=== PATIENT | female | born 1990 | race Caucasian/White ===

== ENCOUNTER 2016-07-26 21:26 | Emergency (ER) | payer SELFPAY ==
[2016-07-26 21:54] LABS: RBC URINE 2 /hpf (0-3); URINE BILIRUBIN NEGATIVE (NEGATIVE); URINE COLOR Yellow (YELLOW); URINE GLUCOSE (UA) NORMAL (Normal); URINE KETONE NEGATIVE (NEGATIVE); URINE LEUKOCYTE ESTERASE NEG Leu/uL (Negative); URINE PROTEIN NEGATIVE (NEGATIVE); URINE UROBILINOGEN NORMAL mg/dL (0.2-1.0); WBC URINE 1 /hpf (0-5)
[2016-07-26 21:57] LABS: URINE BLOOD NEGATIVE (NEGATIVE)
[2016-07-26] MEDS ORDERED: Iohexol 240 (50 ml) PO STA (22:24)
[2016-07-26] MEDS ORDERED: Sodium Chloride 0.9% 1,000 ML IV ONE (22:24)
[2016-07-26] MEDS ORDERED: Iohexol 240 (50 ml) ONE (22:52)
[2016-07-26 22:56] LABS: BASO # 0.1 K/uL (0.0-0.2); BASO % 0.6 % (0.0-2.0); EOS # 0.1 K/uL (0.0-0.7); EOS % 0.9 % (0.0-4.0); HEMATOCRIT 35.4 % (34.0-47.0); LYMPH # 2.1 K/uL (1.0-4.3); LYMPH % 19.8 % (20.0-40.0); MEAN CORPUSCULAR HEMOGLOBIN 26.9 pg (27.0-31.0); MEAN CORPUSCULAR HGB CONC 33.6 g/dL (33.0-37.0); MEAN PLATELET VOLUME 7.8 fL (7.2-11.7); MONO # 0.5 K/uL (0.0-0.8); RED CELL DISTRIBUTION WIDTH 14.3 % (11.5-14.5); WHITE BLOOD COUNT 10.6 K/uL (4.8-10.8)
[2016-07-26 23:46] LABS: CHLORIDE 105 mmol/L (98-107)
[2016-07-26 23:47] LABS: POTASSIUM 3.9 mmol/L (3.6-5.2); SODIUM 138 mmol/L (132-148)
[2016-07-26 23:49] LABS: GFR AFRICAN-AMERICAN > 60
[2016-07-26 23:50] LABS: ALB/GLOB RATIO 1.5 (1.0-2.1); ALKALINE PHOSPHATASE 72 U/L (38-126); ALT/SGPT 34 U/L (9-52); AST/SGOT 22 U/L (14-36); BILIRUBIN,TOTAL 0.4 mg/dL (0.2-1.3); BLOOD UREA NITROGEN 8 mg/dL (7-17); CARBON DIOXIDE 21 mmol/L (22-30); GLUCOSE,RANDOM 107 mg/dL (65-105); TOTAL PROTEIN 7.3 g/dL (6.3-8.3)
--- NOTE | 2016-07-27 | C.PDOC ---
History Of Present Illness Patient presents to the ED complaining of RUQ and RLQ pain that has been worsening for the past 2-3 days. Patient notes the pain is dull and aching. Patient denies any fever, chills, nausea, vomiting, or urinary complaints. Time Seen by Provider: 07/26/16 22:24 Chief Complaint (Nursing): Abdominal Pain History Per: Patient History/Exam Limitations: no limitations Onset/Duration Of Symptoms: Worse Since (2-3 days) Current Symptoms Are (Timing): Still Present Context: Other Severity: Moderate Pain Scale Rating Of: 4 Location Of Pain/Discomfort: RUQ, RLQ Radiation Of Pain To:: None Quality Of Discomfort: Dull, Aching, "Pain" Exacerbating Factors: None Alleviating Factors: None Last Bowel Movement: Today Recent travel outside of the [place]: No Past Medical History Reviewed: Historical Data, Nursing Documentation, Vital Signs Vital Signs: Last Vital Signs Temp 97.9 F 07/26/16 21:30 Pulse 87 07/26/16 21:30 Resp 18 07/26/16 21:30 BP 108/63 07/26/16 21:30 Pulse Ox 100 07/27/16 00:28 Family History: States: Unknown Family Hx - Social History Hx Alcohol Use: No Hx Substance Use: No - Immunization History Hx Tetanus Toxoid Vaccination: No Hx Influenza Vaccination: No Hx Pneumococcal Vaccination: No Review Of Systems Constitutional: Negative for: Fever, Chills Gastrointestinal: Positive for: Abdominal Pain (RUQ and RLQ). Negative for: Nausea, Vomiting Genitourinary: Negative for: Dysuria, Hematuria Physical Exam - Physical Exam Appears: Non-toxic, No Acute Distress Skin: Warm, Dry Head: Atraumatic, Normacephalic Oral Mucosa: Moist Neck: Supple Chest: Symmetrical Cardiovascular: Rhythm Regular Respiratory: No Rales, No Rhonchi, No Wheezing Gastrointestinal/Abdominal: Soft, Tenderness (RUQ), No Guarding, No Rebound, Other (obese) Back: No CVA Tenderness Extremity: Bilateral: Atraumatic Neurological/Psych: Oriented x3 ED Course And Treatment - Laboratory Results Result Diagrams: 07/26/16 22:47 07/26/16 23:37 O2 Sat by Pulse Oximetry: 100 (room air) Pulse Ox Interpretation: Normal Progress Note: Plan: Abdomen/Pelvis CT, labs, Iohexol, IV fluids Reevaluation Time: 02:02 Reassessment Condition: Improved Disposition Counseled Patient/Family Regarding: Studies Performed, Diagnosis, Need For Followup, Rx Given - Disposition Referrals: [facility] [Outside] [facility] [Outside] Disposition: HOME/ ROUTINE Disposition Time: 02:03 Condition: FAIR Additional Instructions: Please return if symptoms recur Prescriptions: Naproxen [Naprosyn] 1 tab PO BID PRN #25 tab PRN Reason: Pain Polyethylene Glycol 3350 [Miralax] 17 gm PO DAILY #270 ml Instructions: Abdominal Pain (ED), Gas and Bloating (ED) - Clinical Impression Clinical Impression: Abdominal pain - Scribe Statement The provider has reviewed the documentation as recorded by the Scribmissy Martinez Provider Attestation: All medical record entries made by the Scribe were at my direction and personally dictated by me. I have reviewed the chart and agree that the record accurately reflects my personal performance of the history, physical exam, medical decision making, and the department course for this patient. I have also personally directed, reviewed, and agree with the discharge instructions and disposition.
[2016-07-27] MEDS ORDERED: Iodixanol 320 MG/ML 100 ML BOTTLE IV ONE (00:35)
[2016-07-27 03:03] VITALS: BP 132/82; PULSE 82; RESP 20; TEMP 98; O2SAT 98
--- NOTE | 2016-07-27 10:28 | CT ---
PROCEDURE: CT Abdomen and Pelvis with oral and IV contrast. HISTORY: abd pain COMPARISON: None available. TECHNIQUE: Contiguous axial images of the abdomen and pelvis. Oral and IV contrast was administered. Coronal and Sagittal reformats generated and reviewed. Contrast dose: 100 mL Visipaque Radiation dose: Total exam DLP = 1124.90 mGy-cm. This CT exam was performed using one or more of the following dose reduction techniques: Automated exposure control, adjustment of the mA and/or kV according to patient size, and/or use of iterative reconstruction technique. FINDINGS: LOWER THORAX: No visible consolidation, pleural effusion, or pneumothorax. LIVER: Unremarkable. GALLBLADDER AND BILE DUCTS: Gallbladder distension. No calcified gallstones identified. PANCREAS: Unremarkable. SPLEEN: Unremarkable. ADRENALS: Unremarkable. KIDNEYS AND URETERS: The kidneys enhance symmetrically. No hydronephrosis or obstructing renal calculus. BLADDER: The urinary bladder appears unremarkable. REPRODUCTIVE: Uterus is present. APPENDIX: The appendix appears within normal limits of caliber. No secondary signs of acute appendicitis. BOWEL: The stomach is nondistended. The bowel loops appear within normal limits of caliber without evidence of intestinal obstruction. PERITONEUM: Small pelvic free fluid, may be physiologic. No definite free air. LYMPH NODES: No bulky lymphadenopathy identified. VASCULATURE: No aortic aneurysm. BONES: No acute osseous abnormality is detected. OTHER FINDINGS: Small fat containing umbilical hernia. IMPRESSION: No acute findings. See above. Preliminary impression was provided by virtual radiologic.
== END 2016-07-27 03:02 | disposition home or self-care (01) ==
LOC: C.ER 21:26
DX: R10.9 Unspecified abdominal pain (principal)
CPT/HCPCS: 74177; 80053; 81001; 84703; 85025; 85610; 85730; 99283; J7040; Q9966; Q9967